=== PATIENT | male | born 1950 | race African-American/Black ===

== ENCOUNTER 2017-06-02 07:56 | Day surgery (SDC) | payer BC, OTHER ==
[2017-06-02] MEDS ORDERED: TETRACAINE 0.5% OPHTH 1 DOSE AFFEYE ONE ×4 (08:10→11:12)
[2017-06-02] MEDS ORDERED: VIGAMOX 0.5% OPHTH 1 DOSE AFFEYE ONE ×6 (08:11→11:27)
[2017-06-02] MEDS ORDERED: NS 500 ML IV 500 ML IV ONE (08:15)
[2017-06-02] MEDS ORDERED: PROLENSA OPHTH 1 DOSE AFFEYE ONE (08:22)
[2017-06-02] MEDS ORDERED: ALPHAGAN-P OPHTH 1 DOSE AFFEYE ONE (08:23)
[2017-06-02] MEDS ORDERED: MYDRIACIL OPHTH 1 DOSE AFFEYE ONE ×3 (08:24→08:26)
[2017-06-02] MEDS ORDERED: CYCLOGYL 1% OPHTH 1 DOSE OP ONE ×3 (08:24→08:26)
[2017-06-02] MEDS ORDERED: AK-DILATE 2.5% OPHTH 1 DOSE OP ONE ×3 (08:24→08:26)
[2017-06-02] MEDS ORDERED: ADRENALINE CHL INJ IR ONE ×2 (11:06→11:12)
[2017-06-02] MEDS ORDERED: BETADINE OPHTH SOLN 5% EACHEYE ONE (11:06)
[2017-06-02] MEDS ORDERED: DUOVISC IO ONE ×2 (11:08→11:12)
[2017-06-02] MEDS ORDERED: BSS OPHTH (PLAIN) 500 ML with VANCOMYCIN HCL 500 MG VIAL 25 MG, ADRENALINE CHL INJ 1 MG IR ONE ×3 (11:08)
[2017-06-02] MEDS ORDERED: XYLOCAINE-MPF 1% IJ ONE ×2 (11:08→11:12)
[2017-06-02 13:28] VITALS: BP 195/95
== END 2017-06-02 11:47 | disposition home or self-care (01) ==
LOC: SURG1 07:56
PROVIDERS: ATTEND Ophthalmology
PROC: 08RK3JZ Replacement of Left Lens with Synthetic Substitute, Percutaneous Approach (ICD-10-PCS; principal; 2017-06-02 12:00)
PROC: 08DK3ZZ Extraction of Left Lens, Percutaneous Approach (ICD-10-PCS; principal; 2017-06-02 12:00)
DX: H25.12 Age-related nuclear cataract, left eye (principal); H25.012 Cortical age-related cataract, left eye
CPT/HCPCS: A4217; J0170; J3370

== ENCOUNTER 2017-06-09 12:16 | Day surgery (SDC) | payer BC ==
[~2017-06-09 12:16] MED LIST: DIPRIVAN VIAL ONE
[2017-06-09] MEDS ORDERED: NS 500 ML IV 500 ML IV ONE (12:23)
[2017-06-09] MEDS ORDERED: TETRACAINE 0.5% OPHTH 1 DOSE AFFEYE ONE ×2 (12:30→14:51)
[2017-06-09] MEDS ORDERED: VIGAMOX 0.5% OPHTH 1 DOSE AFFEYE ONE ×5 (12:35→15:17)
[2017-06-09] MEDS ORDERED: PROLENSA OPHTH 1 DOSE AFFEYE ONE (12:46)
[2017-06-09] MEDS ORDERED: ALPHAGAN-P OPHTH 1 DOSE AFFEYE ONE (12:47)
[2017-06-09] MEDS ORDERED: CYCLOGYL 1% OPHTH 1 DOSE OP ONE ×3 (12:48→12:50)
[2017-06-09] MEDS ORDERED: MYDRIACIL OPHTH 1 DOSE AFFEYE ONE ×3 (12:48→12:50)
[2017-06-09] MEDS ORDERED: AK-DILATE 2.5% OPHTH 1 DOSE OP ONE ×3 (12:48→12:50)
[2017-06-09] MEDS ORDERED: BETADINE OPHTH SOLN 5% EACHEYE ONE (14:51)
[2017-06-09] MEDS ORDERED: ADRENALINE CHL INJ IJ ONE (15:03)
[2017-06-09] MEDS ORDERED: XYLOCAINE-MPF 1% IJ ONE (15:03)
[2017-06-09] MEDS ORDERED: BSS OPHTH (PLAIN) 500 ML with VANCOMYCIN HCL 500 MG VIAL 25 MG, ADRENALINE CHL INJ 1 MG IR ONE ×3 (15:03)
[2017-06-09] MEDS ORDERED: DUOVISC IO ONE (15:03)
[2017-06-09 16:22] VITALS: BP 170/90
== END 2017-06-09 15:38 | disposition home or self-care (01) ==
LOC: SURG1 12:16
PROVIDERS: ATTEND Ophthalmology
PROC: 08RJ3JZ Replacement of Right Lens with Synthetic Substitute, Percutaneous Approach (ICD-10-PCS; principal; 2017-06-09 17:15)
PROC: 08DJ3ZZ Extraction of Right Lens, Percutaneous Approach (ICD-10-PCS; principal; 2017-06-09 17:15)
DX: H25.11 Age-related nuclear cataract, right eye (principal); H25.041 Posterior subcapsular polar age-related cataract, right eye
CPT/HCPCS: A4217; J0170; J3370; J3490